=== PATIENT | female | born 1975 | race African-American/Black ===

== ENCOUNTER 2018-06-04 19:21 | Emergency (ER) | payer OTHER, SELFPAY ==
[2018-06-04] MEDS ORDERED: MAGNE/ALUM HYDROXD 30 ML UCUP ONE (19:52)
[2018-06-04] MEDS ORDERED: MORPHINE 4 MG/ML SYR ONE (19:52)
[2018-06-04] MEDS ORDERED: NA CHLORIDE 0.9% 1,000 ML ONE (19:53)
[2018-06-04] MEDS ORDERED: ONDANSETRON 4 MG/2 ML VIAL ONE (19:53)
[2018-06-04] MEDS ORDERED: LIDOCAINE VISCOUS 2% SOLN 15 ML UDC ONE (19:53)
[2018-06-04] MEDS ORDERED: FAMOTIDINE 20 MG/2 ML VIAL IV ONE (19:53)
[2018-06-04 20:10] LABS: Absolute Lymphocytes (CBC) 1.7 K/uL (0.7-4.9); Absolute Monocytes 0.3 K/uL (0.1-1.3); Absolute Neutrophil 5.4 K/uL (1.8-8.0); Basophils % 0.2 % (0-1.3); Eosinophils % 0.1 % (0-4.4); Hematocrit 41.8 % (36.0-45.0); MCH 30.4 pg (27.0-35.0); MCV 92.3 fL (80-100); MPV 8.1 fL (7.6-11.3); Monocytes % 3.9 % (3.3-12.3); RBC Red Blood Cell Count 4.53 M/uL (3.86-4.86)
[2018-06-04 20:24] LABS: Albumin 3.4 g/dL (3.4-5.0); Bilirubin Direct 0.1 mg/dL (0-0.2); Bilirubin Total 0.3 mg/dL (0.2-1.0); Protein, Total 7.7 g/dL (6.4-8.2)
[2018-06-04 20:53] LABS: Urine Blood 2+ (NEG); Urine Glucose NEGATIVE (NEG); Urine Protein NEGATIVE (NEG); Urine Specific Gravity 1.025 (1.005-1.030); Urine pH 7.5 (5.0-7.0)
--- NOTE | 2018-06-04 20:59 | RAD REPORT ---
EXAM DESCRIPTION: CT - Abdomen Pelvis W Contrast - 06/04/2018 8:44 pm CLINICAL HISTORY: Right upper quadrant abdominal pain, hematemesis, prior cholecystectomy COMPARISON: CT imaging June 2012 TECHNIQUE: Biphasic, helical CT imaging of the abdomen and pelvis was performed following 100 ml non -ionic IV contrast. Oral contrast was given. All CT scans are performed using dose optimization technique as appropriate and may include automated exposure control or mA/KV adjustment according to patient size. FINDINGS: No suspicious findings in the lung bases. The liver, spleen, and pancreas show no suspicious findings. Cholecystectomy clips are present. No bi liary tree dilatation. Symmetric renal function is seen with no hydronephrosis or suspicious renal mass. No pyelonephritis o r acute renal parenchymal process. Urinary bladder is fully contracted limiting assessment. No suspic ious uterine or ovarian finding. Uterus does demonstrate a 2.6 centimeter left-side fundal fibroid. No gastric dilatation or wall thickening. Small bowel loops are not dilated. There are several fluid- filled small bowel loops seen. No acute colon finding. The appendix is normal. No free air, free flu id or inflammatory stranding. No mass or bulky lymphadenopathy. Patient has a small fat only umbilic al hernia. No adrenal abnormality. No suspicious bony findings. IMPRESSION: No obstruction, appendicitis, free air or surgically emergent finding. A few fluid filled nondilated small bowel loops are present and could indicate a nonspecific small poli wel enteritis. Cholecystectomy clips are present. No acute biliary tree or pancreatic process.
--- NOTE | 2018-06-04 21:38 | ER ---
Nurse's Notes [facility] Name: Jessica Martins Age: 42 yrs Sex: Female : 1975 Arrival Date: 06/04/2018 Time: 19:22 Bed 15 Private MD: Diagnosis: Other abdominal pain;Unspecified abdominal pain Presentation: 06/04 19:31 Presenting complaint: Patient states: Pt reports stomach aches for two months, states ea today she had bright red blood in vomit and has been having chills. Transition of care: patient was not received from another setting of care. Onset of symptoms was June 04, 2018. Risk Assessment: Do you want to hurt yourself or someone else? Patient reports no desire to harm self or others. Initial Sepsis Screen: Does the patient meet any 2 criteria? No. Patient's initial sepsis screen is negative. Does the patient have a suspected source of infection? No. Patient's initial sepsis screen is negative. Care prior to arrival: None. 19:31 Method Of Arrival: Wheelchair ea 19:31 Acuity: DARCY 3 ea Triage Assessment: 19:34 General: Appears uncomfortable, Behavior is calm, cooperative, appropriate for age. ea Pain: Complains of pain in right upper quadrant, left upper quadrant, right lower quadrant and left lower quadrant Pain currently is 10 out of 10 on a pain scale. Quality of pain is described as aching, Pain began "pain has been going on for two months". Neuro: Level of Consciousness is awake, alert, obeys commands, Oriented to person, place, time, situation. Cardiovascular: Patient's skin is warm and dry. Respiratory: Airway is patent Respiratory effort is even, unlabored, Respiratory pattern is regular, symmetrical. GI: Abdomen is non-distended, Bowel sounds present X 4 quads. Reports vomiting, since today. Derm: Skin is pink, warm \\T\\ dry. 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 - Social history:: Smoking status: Patient uses tobacco products, denies chronic smoking, but will smoke occasionally, Patient/guardian denies using alcohol, street drugs, The patient lives with family. - Ebola Screening: : No symptoms or risks identified at this time. - Family history:: not pertinent. Screenin:37 Abuse screen: Denies threats or abuse. Nutritional screening: No deficits noted. ea Tuberculosis screening: No symptoms or risk factors identified. Fall Risk None identified. Assessment: 21:07 Reassessment: Patient and/or family updated on plan of care and expected duration. Pain ea level reassessed. Patient is alert, oriented x 3, equal unlabored respirations, skin warm/dry/pink. Returned from CT. 21:50 Reassessment: Patient and/or family updated on plan of care and expected duration. Pain ea level reassessed. Patient is alert, oriented x 3, equal unlabored respirations, skin warm/dry/pink. Discharge instructions given to patient, verbalized the understanding of isntruciton Patient states symptoms have improved. Vital Signs: 19:36 BP 131 / 98; Pulse 89; Resp 18; Temp 98.1; Pulse Ox 99% on R/A; Weight 108.86 kg; ea Height 5 ft. 7 in. (170.18 cm); Pain 10/10; 21:08 BP 123 / 67; Pulse 70; Resp 18; Pulse Ox 99% ; Pain 5/10; ea 19:36 Body Mass Index 37.59 (108.86 kg, 170.18 cm) ea ED Course: 19:22 Patient arrived in ED. am2 19:26 Da Zuñiga MD is Attending Physician. ma2 19:31 Sonia Tamayo, LOREN is Primary Nurse. ea 19:31 Arm band placed on right wrist. Patient placed in an exam room, on a stretcher, on ea supervisor finishing department. 19:31 Patient has correct armband on for positive identification. Bed in low position. Call ea light in reach. Side rails up X2. 19:33 Triage completed. ea 20:15 Inserted saline lock: 20 gauge in right antecubital area, using aseptic technique. ea Blood collected. 20:[address] cw1 20:44 CT Abd/Pelvis - W/Contrast In Process Unspecified. EDMS 21:53 No provider procedures requiring assistance completed. IV discontinued, intact, cc3 bleeding controlled, No redness/swelling at site. Pressure dressing applied. Administered Medications: 20:05 Drug: morphine 4 mg Route: IVP; Site: right antecubital; ea 21:00 Follow up: Response: No adverse reaction; Pain is decreased ea 20:05 Drug: Zofran 4 mg Route: IVP; Site: right antecubital; ea 21:00 Follow up: Response: No adverse reaction; Nausea is decreased ea 20:05 Drug: Pepcid 20 mg Route: IVP; Site: right antecubital; ea 21:00 Follow up: Response: No adverse reaction ea 20:10 Drug: NS 0.9% 1000 ml Route: IV; Rate: 1 bolus; Site: right antecubital; ea 21:50 Follow up: Response: No adverse reaction; IV Status: Completed infusion ea 20:20 Drug: GI Cocktail without - (Maalox Suspension 30 ml, Lidocaine Liquid 2 % 15 ea ml) Route: PO; 21:00 Follow up: Response: No adverse reaction; Pain is decreased ea Outcome: 21:37 Discharge ordered by . dayron 21:53 Discharged to home ambulatory. cc3 21:53 Condition: stable 21:53 Discharge instructions given to patient, Instructed on discharge instructions, follow up and referral plans. medication usage, Demonstrated understanding of instructions, follow-up care, medications, Prescriptions given X 3. 21:54 Patient left the ED. cc3 Signatures: Dispatcher [employer] Sabi Rosales cw1 Shayla Arboleda Elena, RN RN Da Singleton MD MD ma2 Danuta Jackson cc3
--- NOTE | 2018-06-04 21:38 | EDPHYS ---
Physician Documentation [facility] Name: Jessica Martins Age: 42 yrs Sex: Female : 1975 Arrival Date: 06/04/2018 Time: 19:22 Bed 15 Private MD: ED Physician Da Zuñiga HPI: 06/04 19:39 This 42 yrs old Black Female presents to ER via Wheelchair with complaints of ma2 Nausea/Vomiting - blood, Abdominal Pain, Chills. 19:39 The patient presents to the emergency department with nausea, vomiting, abdominal pain, ma2 of the epigastric area and right upper quadrant. Onset: The symptoms/episode began/occurred gradually, 2 month(s) ago. Possible causes: unknown. Associated signs and symptoms: Pertinent positives: anorexia, diarrhea, Pertinent negatives: fever, hematuria, vaginal discharge. Severity of symptoms: At their worst the symptoms were moderate in the emergency department the symptoms are unchanged. The patient has experienced a previous episode. 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 - Social history:: Smoking status: Patient uses tobacco products, denies chronic smoking, but will smoke occasionally, Patient/guardian denies using alcohol, street drugs, The patient lives with family. - Ebola Screening: : No symptoms or risks identified at this time. - Family history:: not pertinent. ROS: 19:39 Constitutional: Negative for fever, chills, and weight loss. ma2 19:39 Abdomen/GI: Positive for abdominal pain, nausea, vomiting, and diarrhea, Negative for constipation, black/tarry stool, acute changes. 19:39 All other systems are negative. Exam: 19:39 Constitutional: This is a well developed, well nourished patient who is awake, alert, ma2 and in no acute distress. Chest/axilla: Normal chest wall appearance and motion. Nontender with no deformity. No lesions are appreciated. Cardiovascular: Regular rate and rhythm with a normal S1 and S2. No gallops, murmurs, or rubs. Normal PMI, no JVD. No pulse deficits. Respiratory: Lungs have equal breath sounds bilaterally, clear to auscultation and percussion. No rales, rhonchi or wheezes noted. No increased work of breathing, no retractions or nasal flaring. Back: No spinal tenderness. No costovertebral tenderness. Full range of motion. MS/ Extremity: Pulses equal, no cyanosis. Neurovascular intact. Full, normal range of motion. 19:39 Abdomen/GI: Inspection: abdomen appears normal, Bowel sounds: normal, Palpation: mild abdominal tenderness, in the epigastric area and right upper quadrant, involuntary guarding, is not appreciated. Vital Signs: 19:36 BP 131 / 98; Pulse 89; Resp 18; Temp 98.1; Pulse Ox 99% on R/A; Weight 108.86 kg; ea Height 5 ft. 7 in. (170.18 cm); Pain 10/10; 21:08 BP 123 / 67; Pulse 70; Resp 18; Pulse Ox 99% ; Pain 5/10; ea 19:36 Body Mass Index 37.59 (108.86 kg, 170.18 cm) ea MDM: 19:26 Patient medically screened. ma2 19:39 Differential diagnosis: gastritis, cholecystitis, pancreatitis, diverticulitis, viral ma2 gastroenteritis, gastroenteritis. 21:37 Data reviewed: vital signs, nurses notes, EMS record. Counseling: I had a detailed ma2 discussion with the patient and/or guardian regarding: the historical points, exam findings, and any diagnostic results supporting the discharge/admit diagnosis, the presence of at least one elevated blood pressure reading (>120/80) during this emergency department visit, the need for outpatient follow up. Response to treatment: the patient's symptoms have resolved after treatment. 06/04 19:39 Order name: Basic Metabolic Panel; Complete Time: 21:15 ma2 06/04 19:39 Order name: CBC with Diff; Complete Time: 21:15 ma2 06/04 19:39 Order name: Creatinine for Radiology; Complete Time: 21:15 ma2 06/04 19:39 Order name: Hepatic Function; Complete Time: 21:15 ma2 06/04 19:39 Order name: Lipase; Complete Time: 21:15 ma2 06/04 19:39 Order name: Test, Serum; Complete Time: 21:15 ma2 06/04 19:39 Order name: IV Saline Lock; Complete Time: 20:11 ma2 06/04 19:39 Order name: CT Abd/Pelvis - W/Contrast; Complete Time: 21:15 ma2 06/04 20:38 Order name: Urine Dipstick--Ancillary (enter results); Complete Time: 21:15 ar5 06/04 19:39 Order name: Labs collected and sent; Complete Time: 20:11 ma2 06/04 19:39 Order name: Urine Dipstick-Ancillary (obtain specimen); Complete Time: 21:05 ma2 Administered Medications: 20:05 Drug: morphine 4 mg Route: IVP; Site: right antecubital; ea 21:00 Follow up: Response: No adverse reaction; Pain is decreased ea 20:05 Drug: Zofran 4 mg Route: IVP; Site: right antecubital; ea 21:00 Follow up: Response: No adverse reaction; Nausea is decreased ea 20:05 Drug: Pepcid 20 mg Route: IVP; Site: right antecubital; ea 21:00 Follow up: Response: No adverse reaction ea 20:10 Drug: NS 0.9% 1000 ml Route: IV; Rate: 1 bolus; Site: right antecubital; ea 21:50 Follow up: Response: No adverse reaction; IV Status: Completed infusion ea 20:20 Drug: GI Cocktail without - (Maalox Suspension 30 ml, Lidocaine Liquid 2 % 15 ea ml) Route: PO; 21:00 Follow up: Response: No adverse reaction; Pain is decreased ea Disposition: 06/04/18 21:37 Discharged to Home. Impression: Other abdominal pain, Unspecified abdominal pain. - Condition is Stable. - Discharge Instructions: Abdominal Pain, Adult. - Prescriptions for Tylenol- Codeine #3 300-30 mg Oral Tablet - take 2 tablet by ORAL route every 6 hours As needed; 30 tablet. Zofran 4 mg Oral Tablet - take 1 tablet by ORAL route every 12 hours As needed; 20 tablet. Pepcid 20 mg Oral Tablet - take 1 tablet by ORAL route once daily for 10 days; 10 tablet. - Medication Reconciliation Form, Thank You Letter, Antibiotic Education, Prescription Opioid Use form. - Follow up: Private Physician; When: Tomorrow; Reason: Continuance of care. Signatures: Dispatcher MedWellSpan HealthSonia Pimentel RN Da Kirk ea, MD MD ma2 Danuta Jackson cc3 Corrections: (The following items were deleted from the chart) 21:54 21:37 06/04/2018 21:37 Discharged to Home. Impression: Other abdominal pain; cc3 Unspecified abdominal pain. Condition is Stable. Forms are Medication Reconciliation Form, Thank You Letter, Antibiotic Education, Prescription Opioid Use. Follow up: Private Physician; When: Tomorrow; Reason: Continuance of care. ma2
[2018-06-04 22:12] VITALS: TEMP 98.1; O2SAT 99
[2018-06-04 22:13] VITALS: BP 123/67
== END 2018-06-04 21:54 | disposition home or self-care (01) ==
LOC: ER 19:21
DX: R10.9 Unspecified abdominal pain (principal); R11.2 Nausea with vomiting, unspecified; Z72.0 Tobacco use
CPT/HCPCS: 36415; 74177; 80048; 80076; 81003; 83690; 84703; 85025; 96361; 96374; 96375; 99284; J2405; J7030; Q9967

== ENCOUNTER 2018-08-15 16:11 | Emergency (ER) | payer SELFPAY ==
[2012-01-01 14:52] VITALS: BP 142/96
--- NOTE | 2018-08-15 17:25 | ER ---
Nurse's Notes [facility] Name: Jessica Martins Age: 43 yrs Sex: Female : 1975 Arrival Date: 08/15/2018 Time: 16:14 Bed 9 Private MD: Unknown, Unknown Diagnosis: Itching Presentation: 08/15 16:42 Presenting complaint: Patient states: I think i have been exposed to pin worms, I can sg feel them come out of my pores when Im sleeping, like i have this spot under my eye, that if i were to clean it with soap you can see where they came out, I can feel them crawling inside me. Transition of care: patient was not received from another setting of care. Risk Assessment: Do you want to hurt yourself or someone else? Patient reports no desire to harm self or others. Initial Sepsis Screen: Does the patient meet any 2 criteria? No. Patient's initial sepsis screen is negative. Does the patient have a suspected source of infection? No. Patient's initial sepsis screen is negative. Care prior to arrival: None. 16:42 Method Of Arrival: Ambulatory sg 16:42 Acuity: DARCY 4 sg Historical: - Allergies: 16:45 No Known Allergies; sg - PSHx: 16:45 Cholecystectomy; Tubal ligation; sg - Immunization history:: Adult Immunizations up to date. - Social history:: Smoking status: Patient/guardian denies using tobacco. - Ebola Screening: : Patient negative for fever greater than or equal to 101.5 degrees Fahrenheit, and additional compatible Ebola Virus Disease symptoms Patient denies exposure to infectious person Patient denies travel to an Ebola-affected area in the 21 days before illness onset No symptoms or risks identified at this time. - Family history:: not pertinent. - Hospitalizations: : No recent hospitalization is reported. Assessment: 17:35 General: Appears in no apparent distress. comfortable, Behavior is calm, cooperative. rv Pain: Denies pain. Neuro: Level of Consciousness is awake, alert, obeys commands, Oriented to person, place, time, situation. Cardiovascular: Capillary refill < 3 seconds. Respiratory: Airway is patent Respiratory effort is even, Breath sounds are clear bilaterally. GI: No signs and/or symptoms were reported involving the gastrointestinal system. : No signs and/or symptoms were reported regarding the genitourinary system. EENT: No signs and/or symptoms were reported regarding the EENT system. Derm: Skin is intact. Vital Signs: 16:45 sg 16:45 pt refusing to come back inside to get VS until she can be taken to an exam room due to sg fear of being contagious ED Course: 16:14 Patient arrived in ED. sb2 16:15 Unknown, Unknown is Private Physician. sb2 16:44 Triage completed. sg 16:44 Arm band placed on. sg 17:09 Deavn Mendenhall MD is Attending Physician. rn Administered Medications: No medications were administered Outcome: 17:25 Discharge ordered by . rn 17:34 Discharged to home ambulatory. 17:34 Condition: stable 17:34 Discharge instructions given to patient, Instructed on discharge instructions, follow up and referral plans. medication usage, Demonstrated understanding of instructions, follow-up care, medications, Prescriptions given X 1. 17:36 Patient left the ED. Signatures: Chris Tadeo RN RN Devan Mendenhall MD MD rn Baxter, Heather RN RN Gi Escobar 2 Gonsalo Piper, RN RN rv
--- NOTE | 2018-08-15 17:25 | EDPHYS ---
Physician Documentation [facility] Name: Jessica Martins Age: 43 yrs Sex: Female : 1975 Arrival Date: 08/15/2018 Time: 16:14 Bed 9 Private MD: Unknown, Unknown ED Physician Devan Mendenhall HPI: 08/15 17:21 This 43 yrs old Black Female presents to ER via Ambulatory with complaints of Itching. rn 17:21 Reports itching, generalized, reports finds "little white things" on skin, no fever, rn reports has been using ecstasy recently, but itching and skin complaints began prior to the ecstasy. . 17:23 Onset: The symptoms/episode began/occurred 1 week(s) ago. Severity of symptoms: At rn their worst the symptoms were mild in the emergency department the symptoms are unchanged. The patient has not experienced similar symptoms in the past. The patient has not recently seen a physician. Historical: - Allergies: 16:45 No Known Allergies; sg - PSHx: 16:45 Cholecystectomy; Tubal ligation; sg - Immunization history:: Adult Immunizations up to date. - Social history:: Smoking status: Patient/guardian denies using tobacco. - Ebola Screening: : Patient negative for fever greater than or equal to 101.5 degrees Fahrenheit, and additional compatible Ebola Virus Disease symptoms Patient denies exposure to infectious person Patient denies travel to an Ebola-affected area in the 21 days before illness onset No symptoms or risks identified at this time. - Family history:: not pertinent. - Hospitalizations: : No recent hospitalization is reported. ROS: 17:23 Constitutional: Negative for fever, chills, and weight loss, Eyes: Negative for injury, rn pain, redness, and discharge, Neck: Negative for injury, pain, and swelling, Cardiovascular: Negative for chest pain, palpitations, and edema, Respiratory: Negative for shortness of breath, cough, wheezing, and pleuritic chest pain, Abdomen/GI: Negative for abdominal pain, nausea, vomiting, diarrhea, and constipation, MS/Extremity: Negative for injury and deformity, Skin: + itching Neuro: Negative for headache, weakness, numbness, tingling, and seizure. Exam: 17:23 Constitutional: This is a well developed, well nourished patient who is awake, alert, rn and in no acute distress. Head/Face: Normocephalic, atraumatic. Skin: Warm, dry with normal turgor. Normal color with no rashes, no lesions, and no evidence of cellulitis. Vital Signs: 16:45 sg 16:45 pt refusing to come back inside to get VS until she can be taken to an exam room due to sg fear of being contagious MDM: 17:09 Patient medically screened. rn 17:23 Differential Diagnosis scabies, parasitic infection, drug related symptoms. Data rn reviewed: vital signs, nurses notes, and as a result, I will discharge patient. Counseling: I had a detailed discussion with the patient and/or guardian regarding: the historical points, exam findings, and any diagnostic results supporting the discharge/admit diagnosis, the need for outpatient follow up, to return to the emergency department if symptoms worsen or persist or if there are any questions or concerns that arise at home. Special discussion: I discussed with the patient/guardian in detail that at this point there is no indication for admission to the hospital. It is understood, however, that if the symptoms persist or worsen the patient needs to return immediately for re-evaluation. Administered Medications: No medications were administered Disposition: 08/15/18 17:25 Discharged to Home. Impression: Itching. - Condition is Stable. - Discharge Instructions: Pinworms, Pediatric, Scabies, Adult. - Prescriptions for Elimite 5 % Topical Cream - apply 1 application by TOPICAL route one time Wash after 12 hours.; 60 gram. - Medication Reconciliation Form, Thank You Letter, Antibiotic Education, Prescription Opioid Use form. - Follow up: Private Physician; When: As needed; Reason: Recheck today's complaints, Re-evaluation by your physician. - Problem is an ongoing problem. - Symptoms are unchanged. Signatures: Chris Tadeo RN RN sg Nieto, Roman, MD MD rn Baxter, Heather, RN RN hb Corrections: (The following items were deleted from the chart) 17:36 17:25 08/15/2018 17:25 Discharged to Home. Impression: Itching. Condition is Stable. hb Forms are Medication Reconciliation Form, Thank You Letter, Antibiotic Education, Prescription Opioid Use. Follow up: Private Physician; When: As needed; Reason: Recheck today's complaints, Re-evaluation by your physician. Problem is an ongoing problem. Symptoms are unchanged. rn
== END 2018-08-15 17:36 | disposition home or self-care (01) ==
LOC: ER 16:11
DX: L29.9 Pruritus, unspecified (principal)
CPT/HCPCS: 99281